=== PATIENT | female | born 1945 | race Asian ===

== ENCOUNTER 2024-02-26 06:24 | Day surgery (SDC) | payer OTHER ==
[~2024-02-26] VITALS: Ht 172.7 cm; Wt 83.9 kg
[~2024-02-26 06:24] MED LIST: ACTOS45 MG PO; HORIZANT300 MG PO; JANUVIA100 MG PO; METFORMIN HCL1000 M2 PO; ZEGERID 40 MG1 EACH PO; ZESTRIL20 MG PO
[2024-02-26] MEDS ORDERED: POVIDONE-IODINE 118 ML BOTT TOP ONE (13:15)
[2024-02-26] MEDS ORDERED: levoFLOXacin IN DEXTROSE 5 % 5 MG/ML PIGGYBAG IV ONE (13:15)
[2024-02-26] MEDS ORDERED: METRONIDAZOLE/SODIUM CHLORIDE 500 MG/100 ML PIGGYBACK IV ONE (13:15)
[2024-02-26] MEDS ORDERED: DIBUCAINE 30 GM TUBE RECTAL ONE (13:15)
[2024-02-26] MEDS ORDERED: HEMOSTATIC MATRIX 1 KIT KIT TOP ONE (13:30)
[2024-02-26] MEDS ORDERED: NEURONTIN300 MG PO (16:22)
[2024-02-26] MEDS ORDERED: CELECOXIB200 MG PO (16:22)
[2024-02-26] MEDS ORDERED: PERCOCET 5-3251 EACH PO (16:23)
== END 2024-02-26 17:05 | disposition home or self-care (01) ==
LOC: CIR.AMB 06:24
PROVIDERS: ATTEND Surgery
DX: D12.8 Benign neoplasm of rectum (principal); K62.5 Hemorrhage of anus and rectum; Z88.0 Allergy status to penicillin; E11.9 Type 2 diabetes mellitus without complications; I10 Essential (primary) hypertension

== ENCOUNTER 2024-03-12 13:24 | Emergency (ER) | payer OTHER ==
[~2024-03-12] VITALS: Ht 172.7 cm; Wt 71.7 kg
[~2024-03-12 13:24] MED LIST changes: +CELECOXIB200 MG PO; +NEURONTIN300 MG PO; +PERCOCET 5-3251 EACH PO
[2024-03-12] MEDS ORDERED: XANAX1 MG PO (13:35)
[2024-03-12] MEDS ORDERED: BARIUM SULFATE 450 ML ORAL.SUSP PO ONE (13:57)
[2024-03-12] MEDS ORDERED: 0.9 % SODIUM CHLORIDE 1,000 ML IV SCH (14:00)
[2024-03-12 14:20] LABS: HEMATOCRIT 32.4 % (36.0-45.00); HEMOGLOBIN 11.1 g/dL (12.0-15.00); MEAN CELL VOLUME 91.2 fL (80.00-100.00); MEAN CORPUSCULAR HEMOGLOBIN 31.3 pg (27.00-32.0); MEAN CORPUSCULAR HGB CONC 34.3 g/dl (32.0-36.0); PLATELET COUNT 154 K/uL (150-450); RED BLOOD COUNT 3.55 M/uL (4.00-6.00); RED CELL DISTRIBUTION WIDTH 14.3 % (11.5-14.5)
[2024-03-12 14:44] LABS: CALCIUM 8.8 mg/dL (8.5-10.1); CREATININE SERUM 1.38 mg/dL (0.55-1.02); GFR 37.17; POTASSIUM 4.15 mEq/L (3.5-5.1)
[2024-03-12 15:03] LABS: INR 1.02; PROTHROMBIN TIME 10.7 SECONDS (9.0-11.5)
[2024-03-12 15:14] LABS: PH,URINE 5.5 (5.0-8.0); URINE APPEARANCE Cloudy; URINE BILIRRUBIN Negative (NEGATIVE); URINE BLOOD Trace; URINE COLOR Yellow; URINE LEUKOCYTE Moderate; URINE NITRATE Positive; URINE PROTEIN Negative (NEGATIVE); URINE UROBILINOGEN 0.2 E.U./dl
[2024-03-12 15:18] LABS: URINE WBC 560.1 uL (0.0-23.2)
[2024-03-12 15:42] LABS: URINE BACTERIA > 9821.5 uL (0.0-1933); URINE GLUCOSE 100 MG/DL (NEGATIVE)
[2024-03-12] MEDS ORDERED: CEFTRIAXONE SODIUM 1,000 MG VIAL ONE (17:19)
[2024-03-12] MEDS ORDERED: CEFTRIAXONE SODIUM 1,000 MG VIAL IV ONE (17:30)
[2024-03-12] MEDS ORDERED: DUI500 PO (18:27)
== END 2024-03-12 19:04 | disposition home or self-care (01) ==
LOC: ER 13:25
PROVIDERS: Emergency Medicine
DX: N39.0 Urinary tract infection, site not specified (principal); K62.5 Hemorrhage of anus and rectum; E11.9 Type 2 diabetes mellitus without complications; Z79.84 Long term (current) use of oral hypoglycemic drugs; Z88.0 Allergy status to penicillin
CPT/HCPCS: 36415; 74177; 96365; 96366; 99284; J0696; J7030; Q9965